=== PATIENT | female | born 1985 | race American Indian/Alaskan Native ===

== ENCOUNTER 2017-07-25 12:19 | Outpatient (CLI) | payer OTHER ==
[2017-07-25] MEDS ORDERED: PRENATAL TABLE1 EAC1 PO (14:04)
[2017-07-25] MEDS ORDERED: ASA81 MG PO (14:05)
== END 2017-07-25 14:01 | disposition still patient (30) ==
LOC: NST 12:19
DX: O30.093 Twin pregnancy, unable to determine number of placenta and number of amniotic sacs, third trimester (principal); Z34.83 Encounter for supervision of other normal pregnancy, third trimester

== ENCOUNTER 2017-07-25 13:13 | Inpatient (IN) | payer OTHER ==
[~2017-07-25] VITALS: Ht 160 cm; Wt 3.5 kg
[2017-07-25] MEDS ORDERED: PRENATAL TABLE1 EAC1 PO (14:04)
[2017-07-25] MEDS ORDERED: ASA81 MG PO (14:05)
== END 2017-07-29 13:14 | DRG 765 ==
LOC: OBS/DEL 13:13 → LDR 07-26 07:18 → OB/GYN 07-26 07:18
PROVIDERS: Obstetrics & Gynecology Obstetrics
PROC: 0UL70ZZ Occlusion of Bilateral Fallopian Tubes, Open Approach (ICD-10-PCS; 2017-07-26)
PROC: 4A033R1 Measurement of Arterial Saturation, Peripheral, Percutaneous Approach (ICD-10-PCS; 2017-07-26)
PROC: 4A1HXCZ Monitoring of Products of Conception, Cardiac Rate, External Approach (ICD-10-PCS; 2017-07-26)
PROC: 10D00Z1 Extraction of Products of Conception, Low, Open Approach (ICD-10-PCS; principal; 2017-07-26 08:45)
DX: O32.1XX2 Maternal care for breech presentation, fetus 2 (principal); O30.043 Twin pregnancy, dichorionic/diamniotic, third trimester; Z3A.37 37 weeks gestation of pregnancy; Z37.2 Twins, both liveborn; Z30.2 Encounter for sterilization